=== PATIENT | female | born 1990 | race African-American/Black ===

== ENCOUNTER 2017-01-28 10:46 | Emergency (ER) | payer OTHER ==
[~2017-01-28] VITALS: Ht 165.1 cm; Wt 98.0 kg
[2017-01-28 10:52] VITALS: BP 131/75
== END 2017-01-28 12:20 | disposition home or self-care (01) ==
LOC: ED 10:46
DX: O26.891 Other specified pregnancy related conditions, first trimester (principal); M54.5 Low back pain; R10.9 Unspecified abdominal pain; Z3A.00 Weeks of gestation of pregnancy not specified

== ENCOUNTER 2018-01-05 18:59 | Emergency (ER) | payer OTHER ==
[~2018-01-05] VITALS: Ht 165.1 cm; Wt 90.9 kg
[2018-01-05 19:05] VITALS: Ht 165.1 cm; Wt 90.9 kg
[2018-01-05 20:06] LABS: UA SPECIFIC GRAVITY >=1.030 (1.005-1.035); microscopic required? YES; urine erythrocyte NEGATIVE (NEGATIVE)
[2018-01-05 20:14] VITALS: BP 141/77
== END 2018-01-05 20:14 | disposition home or self-care (01) ==
LOC: ED 18:59
PROVIDERS: Emergency Medicine
DX: O26.892 Other specified pregnancy related conditions, second trimester (principal); R10.30 Lower abdominal pain, unspecified; R42 Dizziness and giddiness; Z3A.14 14 weeks gestation of pregnancy
CPT/HCPCS: 87491; 87591